=== PATIENT | female | born 2000 | race Caucasian/White ===

== ENCOUNTER 2019-03-28 08:16 | Emergency (ER) | payer OTHER ==
[2019-03-28] MEDS ORDERED: Sodium Chloride 0.9% 2,000 ML ONE (08:45)
[2019-03-28] MEDS ORDERED: Ondansetron PF 4 MG/2 ML Vial ONE (08:45)
[2019-03-28 08:47] LABS: #Basophils 0.1 thou/uL (0.0-0.2); #Lymphocytes 1.4 thou/uL (1.20-3.40); #Monocytes 0.9 thou/uL (0.11-0.59); #Neutrophils 13.5 thou/uL (1.40-6.50); %Basophils 0.5 % (0.0-1.0); %Eosinophils 0.1 % (0.0-10.0); %Monocytes 5.9 % (0.0-4.0); %Neutrophils 84.4 % (31.0-61.0); Hemoglobin 13.9 g/dL (12.0-16.0); Mean Corpuscular HGB CONC 32.5 g/dL (32.0-36.0); Mean Corpuscular Hemoglobin 27.6 pg (25.0-35.0); Mean Platelet Volume 6.6 fL (7.4-10.4); Platelet Count 355 thou/uL (130-400); RBC Distribution Width 12.5 % (11.5-14.5); Red Blood Cell (RBC) Count 5.03 mill/uL (4.00-5.20); White Blood Cell (WBC) Count 15.9 thou/uL (4.8-10.8)
[2019-03-28 08:57] LABS: BHCG - Serum Negative (NEGATIVE); Pregs Control Background? CLEAR/WHITE (CLR/WHITE); Pregs Control Bar Appear? YES (CONTROL BAR)
[2019-03-28 09:09] LABS: ALT (SGPT) 46 U/L (8-55); Alkaline Phosphatase 86 U/L (40-100); Anion Gap 17 mmol/L (10-20); BUN (Urea Nitrogen) 10 mg/dL (7.0-18.7); Bilirubin, Total 0.7 mg/dL (0.2-1.2); Calc. Creatinine Clearance 0 mL/min (70-130); Calcium 8.4 mg/dL (7.8-10.44); Carbon Dioxide 17 mmol/L (22-29); Chloride 106 mmol/L (98-107); Estimated GFR-MDRD 80; Globulin 3.1 g/dL (2.4-3.5); Glucose 102 mg/dL (70-105); Lipase 6 U/L (8-78); Potassium 4.2 mmol/L (3.5-5.1); Protein, Total 7.1 g/dL (6.0-8.3); Sodium 136 mmol/L (136-145)
[2019-03-28 09:15] LABS: AST (SGOT) 32 U/L (5-34)
[2019-03-28] MEDS ORDERED: Ketorolac Tromethamine 30 MG/ML VIAL ONE (09:18)
[2019-03-28] MEDS ORDERED: Dicyclomine 10 MG CAP ONE (09:18)
[2019-03-28] MEDS ORDERED: Acetaminophen 500 MG TAB ONE (09:56)
[2019-03-28] MEDS ORDERED: Prochlorperazine 10 MG/2 ML VIAL ONE (12:23)
[2019-03-28] MEDS ORDERED: Morphine 4 MG/ML VIAL ONE (13:02)
[2019-03-28] MEDS ORDERED: Sodium Chloride 0.9% 1,000 ML ONE (13:02)
--- NOTE | 2019-03-28 13:19 | CT ---
CT Abdomen Pelvis W Con: 03/28/2019 12:42 PM CLINICAL INFORMATION: Abdominal pain, nausea, and vomiting COMPARISON: None. TECHNIQUE: Multiple contiguous axial images were obtained and a CT of the abdomen and pelvis with IV contrast. Oral contrast was administered. Coronal and sagittal reformats were performed. FINDINGS: Lower Chest: Bullae are seen in the right lung base. Abdomen: Liver: within normal limits. Bile Ducts: Normal caliber. Gallbladder: No calcified gallstones. Normal caliber wall. Pancreas: within normal limits. Spleen: within normal limits. Adrenals: within normal limits. Kidneys: within normal limits. Pelvis: Reproductive Organs: No pelvic masses. Ureters: within normal limits. Bladder: within normal limits. Peritoneum: No ascites or free air, no fluid collection. Bowel: Normal caliber. Normal appendix. The questionable thickening of the wall of the left colon is likely secondary to its decompressed state. Mesentery and Retroperitoneum: No enlarged mesenteric or retroperitoneal lymph nodes. Vessels: Normal. Abdominal Wall: within normal limits. Bones: Within normal limits IMPRESSION: 1. No evidence of acute intraabdominal or pelvic abnormality. 2. Bullae seen in the right lower lobe of the lungs.
[2019-03-28] MEDS ORDERED: Iopamidol 370 76% 100 ML VIAL ONE (13:33)
== END 2019-03-28 14:31 | disposition home or self-care (01) ==
LOC: MADERS 08:16
DX: A08.4 Viral intestinal infection, unspecified (principal); E86.9 Volume depletion, unspecified; R00.0 Tachycardia, unspecified
CPT/HCPCS: 74177; 80053; 83605; 83690; 84703; 85025; 96361; 96374; 96375; J0780; J1885; J2270; J2405; J7050; Q9967

== ENCOUNTER 2019-04-07 12:15 | Emergency (ER) | payer OTHER | END 2019-04-07 13:10 | disposition home or self-care (01) | LOC: MADERS 12:15 | DX: K52.9 Noninfective gastroenteritis and colitis, unspecified (principal) | CPT/HCPCS: 99283 ==

== ENCOUNTER 2022-06-24 07:59 | Emergency (ER) | payer OTHER ==
[2022-06-24] MEDS ORDERED: Rabies Vaccine Human 2.5 UNITS VIAL ONE (08:24)
== END 2022-06-24 08:55 | disposition home or self-care (01) ==
LOC: MADERS 07:59
DX: Z23 Encounter for immunization (principal)
CPT/HCPCS: 90471; 90675

== ENCOUNTER → 2022-06-28 | Day surgery (SDC) | payer OTHER ==
[~2022-06-28] MED LIST: Rabies Vaccine Human 2.5 UNITS VIAL ONE
== END | disposition home or self-care (01) ==
LOC: MADER/OP 09:03
DX: Z23 Encounter for immunization (principal)
CPT/HCPCS: 90675